=== PATIENT | male | born 1955 | race Caucasian/White ===

== ENCOUNTER 2019-09-05 01:55 | Emergency (ER) | payer BC ==
[~2019-09-05] VITALS: Ht 162.6 cm; Wt 81.6 kg
[2019-09-05 02:01] VITALS: BP_SYST 165
[2019-09-05] MEDS ORDERED: ALBUTEROL SULFATE 0.083% 2.5 MG/3 ML VIAL.NEB INH ONE ×3 (02:15→03:15)
[2019-09-05] MEDS ORDERED: methylPREDNISolone SOD SUCC/PF 62.5 MG/ML VIAL IM ONE (02:15)
[2019-09-05] MEDS ORDERED: IPRATROPIUM/ALBUTEROL SULFATE 3 ML AMPUL.NEB (DUONEB) INH ONE (02:15)
[2019-09-05] MEDS ORDERED: IPRATROPIUM BROM 0.5 MG/2.5 ML VIAL.NEB (ATROVENT) INH ONE (02:27)
[2019-09-05 03:22] VITALS: BP_SYST 158
== END 2019-09-05 03:22 | disposition home or self-care (01) ==
LOC: SED 01:55
DX: J45.901 Unspecified asthma with (acute) exacerbation (principal)
CPT/HCPCS: 71045; 94640; 96372; 99284; J2930; J7613